=== PATIENT | male | born 1980 | race Caucasian/White ===

== ENCOUNTER 2017-09-01 15:10 | Emergency (ER) | payer OTHER ==
[2017-09-01] MEDS ORDERED: ACETAMINOPHEN 325 MG TABLET PO ONE (15:17)
--- NOTE | 2017-09-01 16:23 | ER Document Report ---
ED Trauma/MVC - General Chief Complaint: Fall Injury Stated Complaint: FALL/RIB PAIN Time Seen by Provider: 09/01/17 16:16 Notes: Patient is a 36-year-old male presents emergency department after a fall at work today. Patient states that he sipping on some scaffolding fell approximately 2-1/2 feet and he stumbled back into a cross beam on his left flank. He admits to bruising and pain at that site. Admits to pain with deep inspiration. Denies any hematuria, pyuria, decreased urine output. Did not take anything prior to arrival. Otherwise healthy male. Current smoker TRAVEL OUTSIDE OF THE [place] IN LAST 30 DAYS: No - Related Data Allergies/Adverse Reactions: No Known Allergies Allergy (Unverified 09/01/17 15:14) Past Medical History - Social History Smoking Status: Current Every Day Smoker Family History: Reviewed & Not Pertinent Review of Systems - Review of Systems Constitutional: No symptoms reported Cardiovascular: No symptoms reported Respiratory: See HPI Gastrointestinal: No symptoms reported Genitourinary: See HPI Musculoskeletal: See HPI -: Yes All other systems reviewed and negative Physical Exam - Vital signs Vitals: Temp Pulse Resp BP Pulse Ox 98.0 F 80 16 126/68 H 97 09/01/17 15:36 09/01/17 15:36 09/01/17 15:36 09/01/17 15:36 09/01/17 15:36 - Notes Notes: PHYSICAL EXAMINATION: GENERAL: Well-appearing, well-nourished and in no acute distress. HEAD: Atraumatic, normocephalic. NECK: Normal range of motion, supple without lymphadenopathy. Trachea midline LUNGS: Breath sounds clear to auscultation bilaterally and equal. No wheezes rales or rhonchi. HEART: Regular rate and rhythm without murmurs. Pulses intact all throughout. ABDOMEN: Soft, nontender, nondistended abdomen. No guarding, no rebound. No masses appreciated. Musculoskeletal: Normal range of motion, no pitting or edema. No cyanosis. Hip non tender, stable. NEUROLOGICAL: Cranial nerves grossly intact. Normal speech, normal gait. Normal sensory, motor, and reflex exams. PSYCH: Normal mood, normal affect. SKIN: Warm, No active bleeding.mild ecchymosis over the left lower rib cage/ flank without CVA tenderness U/S fast exam notes no obvious free fluid but this is a nondiagnostic evaluation Course - Re-evaluation Re-evalutation: 09/01/17 18:03 Patient is a 36-year-old male is hemodynamically stable, no acute distress afebrile. Chest x-ray does not show any evidence of pneumothorax or displaced rib fractures. Fast exam without any evidence of retroperitoneal or free of fluid. Patient declined to wait for ultrasound. Discussed with him strict return precautions that would indicate concern for retroperitoneal hemorrhage. Such as worsening bruising, nausea, vomiting, worsening abdominal pain, decreased urine output, darkened urine. and patient agreed with plan and stable for discharge home. - Vital Signs Vital signs: Temp Pulse Resp BP Pulse Ox 97.5 F 66 18 126/81 H 97 09/01/17 18:01 09/01/17 18:01 09/01/17 18:01 09/01/17 18:01 09/01/17 18:01 - Laboratory Laboratory results interpreted by me: 09/01/17 16:30 Urine Ascorbic Acid 20 H - Diagnostic Test Radiology reviewed: Image reviewed, Reports reviewed Discharge - Discharge Clinical Impression: Fall Qualifiers: Encounter type: initial encounter Qualified Code(s): W19.XXXA - Unspecified fall, initial encounter Condition: Good Disposition: HOME, SELF-CARE Instructions: Rib Contusion ([facility]) Prescriptions: Ibuprofen [Motrin 800 mg Tablet] 800 mg PO Q8H PRN #30 tab PRN Reason: Forms: Special Work Note, Return to Work
[2017-09-01 16:42] LABS: APPEARANCE,URINE CLEAR; BILIRUBIN,URINE NEGATIVE (NEGATIVE); COLOR,URINE YELLOW; GLUCOSE, URINE NEGATIVE (NEGATIVE); KETONES,URINE NEGATIVE (NEGATIVE); LEUKOCYTE ESTERASE,URINE NEGATIVE (NEGATIVE); NITRITE,URINE NEGATIVE (NEGATIVE); PROTEIN,URINE NEGATIVE (NEGATIVE); URINE SPECIFIC GRAVITY 1.021; UROBILINOGEN,URINE NEGATIVE mg/dL (<2.0)
--- NOTE | 2017-09-01 17:08 | RADIOLOGY REPORT (SQ) ---
EXAM DESCRIPTION: RIBS LEFT W/PA CHEST COMPLETED DATE/TIME: 09/01/2017 5:00 pm REASON FOR STUDY: pain s/p injury COMPARISON: None. TECHNIQUE: Frontal view of the chest and additional views of the left ribs acquired. NUMBER OF VIEWS: Three view. LIMITATIONS: None. FINDINGS: FRONTAL CXR: No pneumothorax. No pleural effusion. No atelectasis or infiltrates. RIBS: No displaced rib fractures. No lytic or blastic bony lesions. OTHER: No other significant finding. IMPRESSION: NO PNEUMOTHORAX. NO DISPLACED RIB FRACTURES. COMMENT: SITE OF TRAUMA/COMPLAINT MARKED/STAMP COMPLETED: YES. TECHNICAL DOCUMENTATION: JOB ID: [id number] [employer]- All Rights Reserved
[2017-09-01 18:02] VITALS: BP 126/81
== END 2017-09-01 18:15 | disposition home or self-care (01) ==
LOC: ER 15:10
DX: S20.20XA Contusion of thorax, unspecified, initial encounter (principal); S30.1XXA Contusion of abdominal wall, initial encounter; W17.89XA Other fall from one level to another, initial encounter; Y99.0 Civilian activity done for income or pay; F17.200 Nicotine dependence, unspecified, uncomplicated
CPT/HCPCS: 81001; 99283